=== PATIENT | female | born 1990 | race Caucasian/White ===

== ENCOUNTER 2017-01-21 11:50 | Day surgery (SDC) | payer OTHER ==
[2017-01-21] MEDS ORDERED: Sodium Chloride 0.9% 500 ML IV ONE (13:41)
--- NOTE | 2017-01-21 13:42 | C.PDOC ---
History Of Present Illness 26 y/o female presents to emergency department with complaint of vaginal bleeding for 2 weeks. Patient also reports suprapubic abdominal pain that is now radiating to bilateral lower back. Also c/o dizziness. She notes that she was evaluated by Dr. Noel (OB-ANALYTICAL DATA SCIENTIST) and had negative ultrasound a few months prior. Patient otherwise denies fever, chills, nausea, vomiting, diarrhea, dysuria, frequency, vaginal discharge, or other associated symptoms. Time Seen by Provider: 01/21/17 13:08 Chief Complaint (Nursing): Female Genitourinary History Per: Patient History/Exam Limitations: no limitations Onset/Duration Of Symptoms: Days Current Symptoms Are (Timing): Still Present Quality Of Discomfort: "Pain" Associated Symptoms: denies: Fever, Chills, Vomiting, Diarrhea, Urinary Symptoms Recent travel outside of the [place]: No Abnormal Vaginal Bleeding: Yes Past Medical History Reviewed: Historical Data, Nursing Documentation, Vital Signs Vital Signs: Last Vital Signs Temp 97 F L 01/21/17 17:45 Pulse 63 01/21/17 17:45 Resp 18 01/21/17 17:45 BP 157/82 H 01/21/17 17:45 Pulse Ox 100 01/21/17 17:45 - Medical History PMH: HTN Surgical History: Appendectomy Family History: States: Unknown Family Hx - Social History Hx Tobacco Use: No Hx Alcohol Use: Yes Hx Substance Use: No - Immunization History Hx Tetanus Toxoid Vaccination: No Hx Influenza Vaccination: No Hx Pneumococcal Vaccination: No Review Of Systems Except As Marked, All Systems Reviewed And Found Negative. Constitutional: Negative for: Fever, Chills Cardiovascular: Negative for: Chest Pain Respiratory: Negative for: Cough Gastrointestinal: Positive for: Abdominal Pain. Negative for: Nausea, Vomiting , Diarrhea Genitourinary: Positive for: Vaginal Bleeding. Negative for: Dysuria, Frequency , Pelvic Pain Skin: Negative for: Rash Neurological: Positive for: Dizziness. Negative for: Headache Physical Exam - Physical Exam Appears: Non-toxic, No Acute Distress Skin: Normal Color, Warm, Dry Head: Atraumatic, Normacephalic Oral Mucosa: Moist Chest: Symmetrical Cardiovascular: Rhythm Regular Respiratory: Normal Breath Sounds, No Accessory Muscle Use, No Rales, No Rhonchi , No Wheezing Gastrointestinal/Abdominal: Soft, No Tenderness, No Distention, No Guarding, No Rebound Back: Normal Inspection, No CVA Tenderness Extremity: Normal ROM, Capillary Refill (< 2 sec. ) Neurological/Psych: Oriented x3, Normal Speech, Normal Cognition ED Course And Treatment - Laboratory Results Result Diagrams: 01/21/17 13:52 01/21/17 13:52 O2 Sat by Pulse Oximetry: 100 (RA) Pulse Ox Interpretation: Normal Progress Note: Labs, UA ordered and reviewed. IV fluids given. Medical Decision Making Medical Decision Making: The case was discussed with Dr. Noel who states that the patient is scheduled for a D&C for the irregular bleeding. 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 - Scribe Statement The provider has reviewed the documentation as recorded by the Scribe Javi Cason All medical record entries made by the Milesibe were at my direction and personally dictated by me. I have reviewed the chart and agree that the record accurately reflects my personal performance of the history, physical exam, medical decision making, and the department course for this patient. I have also personally directed, reviewed, and agree with the discharge instructions and disposition.
[2017-01-21 13:57] LABS: BASO % 1.2 % (0.0-2.0); EOS # 0.1 K/uL (0.0-0.7); EOS % 2.7 % (0.0-4.0); HEMATOCRIT 40.4 % (34.0-47.0); LYMPH # 1.4 K/uL (1.0-4.3); LYMPH % 35.9 % (20.0-40.0); MEAN CELL VOLUME 82.6 fL (81.0-99.0); MEAN CORPUSCULAR HEMOGLOBIN 27.6 pg (27.0-31.0); MEAN CORPUSCULAR HGB CONC 33.4 g/dL (33.0-37.0); MEAN PLATELET VOLUME 8.7 fL (7.2-11.7); MONO # 0.3 K/uL (0.0-0.8); MONO % 6.4 % (0.0-10.0); RED CELL DISTRIBUTION WIDTH 14.8 % (11.5-14.5); WHITE BLOOD COUNT 3.9 K/uL (4.8-10.8)
[2017-01-21 14:06] LABS: CHLORIDE 99 mmol/L (98-107); SODIUM 141 mmol/L (132-148)
[2017-01-21 14:08] LABS: GFR AFRICAN-AMERICAN > 60
[2017-01-21 14:09] LABS: ALB/GLOB RATIO 1.3 (1.0-2.1); ALKALINE PHOSPHATASE 70 U/L (38-126); ALT/SGPT 47 U/L (9-52); AST/SGOT 28 U/L (14-36); BLOOD UREA NITROGEN 10 mg/dL (7-17); CALCIUM 9.8 mg/dl (8.6-10.4); CARBON DIOXIDE 27 mmol/L (22-30); GLUCOSE,RANDOM 79 mg/dL (65-105); TOTAL PROTEIN 8.3 g/dL (6.3-8.3)
[2017-01-21 14:38] LABS: RBC URINE 3 /hpf (0-3); URINE BACTERIA RARE (<OCC); URINE BILIRUBIN NEGATIVE (NEGATIVE); URINE COLOR Straw (YELLOW); URINE GLUCOSE (UA) NORMAL (Normal); URINE KETONE NEGATIVE (NEGATIVE); URINE LEUKOCYTE ESTERASE TRACE Leu/uL (Negative); URINE PROTEIN NEGATIVE (NEGATIVE); URINE UROBILINOGEN NORMAL mg/dL (0.2-1.0); WBC URINE 2 /hpf (0-5)
[2017-01-21 14:45] LABS: URINE BLOOD 1+ (NEGATIVE)
[2017-01-21 14:47] VITALS: O2SAT 100
[2017-01-21] MEDS ORDERED: Propofol 10 mg/ml Inj (20 ML) ONE (15:18)
[2017-01-21] MEDS ORDERED: Midazolam 2 MG/2 ML VIAL ONE (15:18)
[2017-01-21] MEDS ORDERED: Lidocaine Hydrochloride 5 ML INJ ONE (15:19)
[2017-01-21] MEDS ORDERED: Lactated Ringer's 1,000 ML IV ONE (15:50)
--- NOTE | 2017-01-21 16:28 | PCM.SURG1 ---
Surgeon's Initial Post Op Note - Surgeon's Notes Surgeon: Dr. Noel Tester Operator Helper: None Type of Anesthesia: General LMA Anesthesia Administered By: Dr. Linda Pre-Operative Diagnosis: 26 yo with Menorrhagia, Irregular menstrual cycle Operative Findings: AV uterus with endometrial polyp, proliferative endometrium Post-Operative Diagnosis: Same as above Operation Performed: Hysteroscopy Myosure D and C Specimen/Specimens Removed: emc,ecc, polyp Estimated Blood Loss: EBL {In ML}: 10 Blood Products Given: N/A Drains Used: No Drains Post-Op Condition: Good Date of Surgery/Procedure: 01/21/17 Time of Surgery/Procedure: 16:28
[2017-01-21] MEDS ORDERED: HYDROmorphone 0.5 mg/0.5 ml ISec IVP PRN (16:43)
[2017-01-21] MEDS ORDERED: Lactated Ringer's 1,000 ML IV SCH (16:45)
[2017-01-21 17:47] VITALS: BP 157/82; PULSE 63; RESP 18; TEMP 97
--- NOTE | 2017-02-08 02:48 | OP ---
PROCEDURE DATE: 01/21/2017 PREOPERATIVE DIAGNOSES: A 26-year-old female with history of menorrhagia, irregular menstrual period, and endometrial polyp. POSTOPERATIVE DIAGNOSES: A 26-year-old female with history of menorrhagia, irregular menstrual period, and endometrial polyp.. PROCEDURE: Hysteroscopy and MyoSure and dilatation and curettage. SURGEON: Penny Noel MD TYPE OF ANESTHESIA: General LMA. FINDINGS: Anteverted uterus, approximately 12 weeks' gestation, noted to have endometrial polyp. COMPLICATIONS: None. ESTIMATED BLOOD LOSS: Approximately 10 mL IV FLUID INTAKE: 400 mL INTAKE AND OUTPUT: 100 mL DESCRIPTION OF PROCEDURE: The patient was informed of the risk factors, benefits, and alternative of the procedure. Risks have include an infection, bleeding, damages to surrounding organ and tissue, complications from anesthesia and possible . After informed consent was obtained, she was then taken to the operating room prepped and draped in normal sterile fashion, and placed in dorsal lithotomy position. A weighted-speculum was placed into the vagina. The anterior lip of the cervix was grasped with a single-toothed tenaculum. The uterus was gently sounded to approximately 10 cm. Upon complete uterine dilation, the scope was then placed and complete surveillance of the uterine cavity was then performed. It was noted that she had an endometrial polyp. The MyoSure device was then activated. Under direct visualization, the polyp was then removed and submitted to pathology and excellent hemostasis was noted. In that particular instance, MyoSure device was then removed and a fractional D and C was then performed. EMC and ECC was submitted to pathology. Upon completion, all instruments were removed from the vagina. Instruments and lap counts were correct x2. The patient was then taken to the recovery room in stable condition and instructed to follow up in the office in approximately 2 weeks. Penny Noel MD
== END 2017-01-21 18:06 | disposition home or self-care (01) ==
LOC: C.SDS 11:50 → C.ER 11:50 → C.SDS 14:49
PROVIDERS: ATTEND Obstetrics & Gynecology
DX: N92.0 Excessive and frequent menstruation with regular cycle (principal)
CPT/HCPCS: 58563; 80053; 81001; 84703; 85025; 96360; 99285; J2250; J2704; J3010; J7040; J7120

== ENCOUNTER 2018-07-27 12:53 | Emergency (ER) | payer MEDICAID, OTHER ==
[2018-07-27 13:00] VITALS: O2SAT 100
--- NOTE | 2018-07-27 13:15 | C.PDOC ---
History Of Present Illness 27 y/o female presents to ED complaining of chest pain since this morning, which she describes as sharp and pleuritic. 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 States that the pain worsens when she lifts her arms and with deep breathing. Denies fall, shortness of breath, numbness, weakness, or cough. Time Seen by Provider: 07/27/18 13:11 Chief Complaint (Nursing): Chest Pain History Per: Patient History/Exam Limitations: no limitations Onset/Duration Of Symptoms: Hrs Current Symptoms Are (Timing): Still Present Past Medical History Reviewed: Historical Data, Nursing Documentation, Vital Signs Vital Signs: Last Vital Signs Temp 98.5 F 07/27/18 12:59 Pulse 80 07/27/18 12:59 Resp 18 07/27/18 12:59 BP 134/91 H 07/27/18 12:59 Pulse Ox 100 07/27/18 12:59 - Medical History PMH: HTN Surgical History: Appendectomy Family History: States: No Known Family Hx - Social History Hx Tobacco Use: No Hx Alcohol Use: Yes Hx Substance Use: No - Immunization History Hx Tetanus Toxoid Vaccination: No Hx Influenza Vaccination: No Hx Pneumococcal Vaccination: No Review Of Systems Except As Marked, All Systems Reviewed And Found Negative. Cardiovascular: Positive for: Chest Pain Respiratory: Negative for: Cough, Shortness of Breath Neurological: Negative for: Weakness, Numbness Physical Exam - Physical Exam Appears: Non-toxic, No Acute Distress Skin: Warm, Dry Head: Atraumatic, Normacephalic Eye(s): bilateral: Normal Inspection Oral Mucosa: Moist Neck: Supple Chest: Other (reproducible chest wall tenderness to the left side) Cardiovascular: Rhythm Regular, No Murmur Respiratory: Normal Breath Sounds, No Rales, No Rhonchi, No Wheezing Gastrointestinal/Abdominal: Soft, No Tenderness Back: No CVA Tenderness Extremity: Bilateral: Atraumatic, Normal ROM Neurological/Psych: Oriented x3, Normal Speech, Normal Cognition ED Course And Treatment ECG: Interpreted By Me, Viewed By Me ECG Rhythm: Sinus Rhythm Interpretation Of ECG: Normal axis. Rate From EC O2 Sat by Pulse Oximetry: 100 (RA) Pulse Ox Interpretation: Normal - Other Rad CXR X-Ray: Read By Radiologist Interpretation: FINDINGS: LUNGS: No active pulmonary disease. PLEURA: No significant pleural effusion identified. No pneumothorax apparent. CARDIOVASCULAR: No aortic atherosclerotic calcification present. Normal cardiac size. No pulmonary vascular congestion. OSSEOUS STRUCTURES: No significant abnormalities. VISUALIZED UPPER ABDOMEN: Normal. OTHER FINDINGS: None. IMPRESSION: No active disease. Medical Decision Making Medical Decision Making: Plan: --Chest XR --Naproxen 550 mg PO Disposition - Disposition Referrals: [facility] [Outside] Disposition: HOME/ ROUTINE Disposition Time: 13:56 Condition: GOOD Additional Instructions: Follow up with the medical doctor within 1-2 days. 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 - Scribe Statement The provider has reviewed the documentation as recorded by the Milesibe Melissa Driver All medical record entries made by the Milesibjose were at my direction and personally dictated by me. I have reviewed the chart and agree that the record accurately reflects my personal performance of the history, physical exam, me dical decision making, and the department course for this patient. I have also personally directed, reviewed, and agree with the discharge instructions and disposition.
[2018-07-27] MEDS ORDERED: Naproxen 550 mg Tab PO STA (13:17)
[2018-07-27] MEDS ORDERED: Naproxen 550 mg Tab PO ONE (13:38)
--- NOTE | 2018-07-27 13:54 | RAD ---
Date of service: 07/27/2018 HISTORY: pleuritic chest pain COMPARISON: Comparison is made with 07/07/2014 TECHNIQUE: Chest PA and lateral views FINDINGS: LUNGS: No active pulmonary disease. PLEURA: No significant pleural effusion identified. No pneumothorax apparent. CARDIOVASCULAR: No aortic atherosclerotic calcification present. Normal cardiac size. No pulmonary vascular congestion. OSSEOUS STRUCTURES: No significant abnormalities. VISUALIZED UPPER ABDOMEN: Normal. OTHER FINDINGS: None. IMPRESSION: No active disease.
[2018-07-27 14:01] VITALS: BP 128/88; PULSE 68; RESP 20; TEMP 98.6
--- NOTE | 2018-07-28 18:23 | CARD ---
APPROVED REPORT Date of service: 07/27/2018 EKG Measurement Heart [id number] <Conclusion> Normal sinus rhythm Incomplete right bundle branch block Borderline ECG
== END 2018-07-27 14:04 | disposition home or self-care (01) ==
LOC: C.ER 12:53
DX: M94.0 Chondrocostal junction syndrome [Tietze] (principal); I10 Essential (primary) hypertension